=== PATIENT | female | born 1990 | race Caucasian/White ===

== ENCOUNTER 2017-03-27 21:47 | Emergency (ER) | payer OTHER ==
--- NOTE | 2017-03-27 22:01 | ED Physician Documentation ---
PD HPI SKIN - Stated complaint Stated Complaint: TAIL BONE PAIN - History obtained from History obtained from: Patient - History of Present Illness Timing - onset: How many days ago (3) Timing - details: Gradual onset Pain level now: 10 Location: Back Quality / character: Painful, Swelling Similar symptoms before: Diagnosis (pilonidal cyst) - Additional information Additional information: c/o 4 days of progressive pain and swelling in low back , in area of previous episodes of infected pilonidal cyst. She has had surgery for this including removal of sinus tract. Review of Systems GI: denies: Abdominal Pain Skin: reports: Rash Musculoskeletal: reports: Back pain PD PAST MEDICAL HISTORY - Past Medical History Past Medical History: Yes Neuro: Headache/migraine - Past Surgical History Past Surgical History: Yes Derm: Other (pilonidal cyst surgery x 2) - Present Medications Home Medications: Ambulatory Orders Medication Instructions Recorded Confirmed Butalb/Acetaminophen/Caffeine 1 each PO PRN 03/27/17 [Fioricet 50-300-40 mg Capsule] Clindamycin HCl [Clindamycin 300MG 300 mg PO QID #39 capsule 03/27/17 CAP] Cyclobenzaprine [Flexeril] 10 mg ORAL DAILY 03/27/17 03/27/17 Ethinyl Estradiol/Drospirenone 1 tab ORAL DAILY 03/27/17 03/27/17 [Karime 28 Tablet] oxyCODONE/ACET 5/325 [Percocet 5 1 - 2 each PO Q6H PRN #20 tablet 03/27/17 mg/325 mg] - Allergies Allergies/Adverse Reactions: Allergies Allergy/AdvReac Type Severity Reaction Status Date / Time No Known Drug Allergies Allergy Verified 03/27/17 21:53 PD ED PE NORMAL - Vitals Vital signs reviewed: Yes - General General: Alert and oriented X 3, No acute distress, Well developed/nourished - Back Back: No spinal TTP PD ED PE EXPANDED - Back Back visual: 1 - rash (confluent erythema), swelling, tenderness Results - Vitals Vitals: Vital Signs - 24 hr 03/27/17 03/27/17 21:51 23:27 Temperature 37 C Heart Rate 113 H 106 H Respiratory 18 18 Rate Blood Pressure 127/73 109/63 O2 Saturation 96 97 Oxygen O2 Source Room air Procedures - Abscess I&D (location) Back Dorsal Preparation: Chlorhexadine, Lidocaine 1%, With epi Incision: Needle aspiration, Purulent drainage, Culture obtained. No: Incised with scalpel (due to the depth of the abscess (determined by needle probing), I did not incise the abscess. Needle was redirected mulitple times and a total of 35cc pus was removed) Other: Pt tolerated well, Antibiotic prescribed PD MEDICAL DECISION MAKING - ED course Complexity details: reviewed results, re-evaluated patient, considered differential, d/w patient Departure - Departure Disposition: 01 Home, Self Care Clinical Impression: Pilonidal abscess Condition: Good Instructions: ED Cyst Pilonidal Infected IandD Follow-Up: [facility] [Provider Group] Prescriptions: Clindamycin HCl [Clindamycin 300MG CAP] 300 mg PO QID #39 capsule oxyCODONE/ACET 5/325 [Percocet 5 mg/325 mg] 1 - 2 each PO Q6H PRN #20 tablet PRN Reason: Pain
[2017-03-27] MEDS ORDERED: LIDOCAINE 1%-EPI 1:100000 20 ML MDV SUBQ STA (22:10)
[2017-03-27] MEDS ORDERED: HYDROmorphone 1 MG/ML SYRINGE IVP STA (22:10)
[2017-03-27] MEDS ORDERED: LORazepam 2 MG/ML VIAL IVP STA (22:10)
[2017-03-27] MEDS ORDERED: CLINDAMYCIN 600 MG/50 ML 50 ML IV ONE (23:13)
[2017-03-27] MEDS ORDERED: oxyCOD/ACETAMIN 5 MG/325 MG TABLET PO STA (23:14)
[2017-03-27 23:28] VITALS: BP 109/63
[2017-03-27] MEDS ORDERED: oxyCODONE/ACET 5/325 Prepack 4 PO STA (23:34)
== END 2017-03-27 23:59 | disposition home or self-care (01) ==
LOC: ED 21:47
DX: L05.01 Pilonidal cyst with abscess (principal)
CPT/HCPCS: 10080; 36415; 87070; 87205; 96365; 96375; 99283; A9270; J1170; J2060; 81599

== ENCOUNTER 2020-12-16 09:27 | Outpatient (CLI) | payer OTHER ==
--- NOTE | 2020-12-16 15:35 | MRI Report ---
PROCEDURE: Brain W/WO INDICATIONS: BENIGN NEOPLASM OF PITUITARY GLAND CONTRAST: IV CONTRAST: Gadavist ml: 9 TECHNIQUE: Noncontrast axial T1 spin echo, axial T2 fast spin echo, sagittal and axial FLAIR, coronal T2 fast sp in echo, axial gradient echo, axial diffusion and ADC through the brain. After the administration of contrast, axial and coronal T1 spin echo with fat saturation through the brain. COMPARISON: None. FINDINGS: Image quality: Excellent. CSF spaces: Basal cisterns are patent. No extra-axial fluid collections. Ventricles are normal in size and shape. Pituitary gland: T1 shortening is present in the neurohypophysis, larger than expected for the normal posterior pituitary bright spot. In the midline posterior pituitary gland there is an approximately 4 mm focus of hypoenhancement (series 1201 image 4). The anterior pituitary gland demonstrates unifor m enhancement. The infundibulum is midline. Suprasellar structures are unremarkable. Brain: No midline shift. No intracranial bleeds or masses. No abnormal intracranial enhancement. T here is cerebral volume loss for age. There is periventricular white matter chronic small vessel isc hemic change. The brainstem appears normal. Diffusion-weighted images demonstrate no acute ischemic insults. No chronic ischemic insults. Normal intravascular flow voids are present. Skull and face: Calvarial marrow is normal in signal. Orbits appear normal. Sinuses: Sinuses and mastoids appear clear. IMPRESSION: Approximately 4 mm focus of hypoenhancement in the posterior midline pituitary gland is consistent wi th a microadenoma. Intrinsic T1 hyperintensity of this lesion is likely reflective of high proteinace ous content as opposed to hemorrhage. Reviewed by: Will Recio MD on 12/16/2020 3:34 PM PDT Approved by: Will Recio MD on 12/16/2020 3:34 PM PDT Station ID: [id number]
== END 2020-12-16 09:28 | disposition home or self-care (01) ==
LOC: DI 09:27
DX: D35.2 Benign neoplasm of pituitary gland (principal)
CPT/HCPCS: 70553; A9585

== ENCOUNTER 2021-09-24 08:23 | Emergency (ER) | payer OTHER ==
[2021-09-24 08:35] VITALS: BP 114/76
--- NOTE | 2021-09-24 09:11 | ED Physician Documentation ---
PD HPI BACK PAIN - Stated complaint Stated Complaint: BACK PX - Chief complaint Chief Complaint: Back Pain - History obtained from History obtained from: Patient - History of Present Illness Timing - onset: Today Timing - duration: Hours (onset 2 hours ago when bent to lift up bathroom scale (light scale that she dos every day) and felt a spasm and pain in lower back, mostly right. No fall. No neuro symptoms. Hurts for ROM and twisting.) Timing - details: Abrupt onset, Still present Location: Lower, Right Quality: Pain, Spasm, Aching Associated symptoms: No: Fever, Weakness, Numbness, Incontinent of urine Improves with: Rest Worsened by: Movement, Twisting, Palpation Contributing factors: Lifting, Other (she has been helping another person move, so lifting boxes/etc a lot the past few days.). No: Twisting, Trauma Similar symptoms before: Has not had sx before Recently seen: Not recently seen Review of Systems Constitutional: denies: Fever, Chills Nose: denies: Rhinorrhea / runny nose, Congestion Throat: denies: Sore throat Respiratory: denies: Cough GI: denies: Abdominal Pain, Nausea, Vomiting, Diarrhea : denies: Dysuria, Frequency Musculoskeletal: reports: Back pain (just this morning). denies: Neck pain Neurologic: denies: Focal weakness, Numbness, Near syncope PD PAST MEDICAL HISTORY - Past Medical History Cardiovascular: None Respiratory: None Neuro: None Endocrine/Autoimmune: None GI: Ulcers Musculoskeletal: None Derm: Other - Past Surgical History Past Surgical History: Yes /[employer]: Tubal ligation HEENT: Tonsil/Adenoidectomy Derm: Other (pilonidal cyst surgery x 2) - Present Medications Home Medications: Ambulatory Orders Medication Instructions Recorded Confirmed Ethinyl Estradiol/Drospirenone 1 tab ORAL DAILY 03/27/17 09/24/21 [Karime 28 Tablet] Escitalopram Oxalate [Lexapro] 20 mg PO DAILY 09/24/21 09/24/21 Gabapentin [Neurontin] 200 mg PO QPM 09/24/21 09/24/21 HYDROcod/ACETAM 5/325 [Cunningham 5/325] 1 ea PO Q6H PRN #18 tablet 09/24/21 Meloxicam [Mobic] 7.5 mg PO BID 10 Days #20 tablet 09/24/21 Propranolol [Inderal] 10 mg PO BID 09/24/21 09/24/21 tiZANidine [Zanaflex] 4 mg PO Q8H PRN #25 tablet 09/24/21 - Allergies Allergies/Adverse Reactions: Allergies Allergy/AdvReac Type Severity Reaction Status Date / Time No Known Drug Allergies Allergy Verified 03/27/17 21:53 - Social History Does the pt smoke?: Yes Smoking Status: Current every day smoker Does the pt have substance abuse?: No - Immunizations Immunizations are current?: Yes PD ED PE NORMAL - Vitals Vital signs reviewed: Yes - General General: Alert and oriented X 3, Well developed/nourished, Other (appears uncomfortable with guarding ROM of the low back. ) - Cardiac Cardiac: RRR, No murmur - Respiratory Respiratory: Clear bilaterally - Abdomen Abdomen: Soft, Non tender - Back Back: No CVA TTP, Other (tender in muscle lower lumbar more to right of midline. Not tender in vertebrae to percussion. ) - Derm Derm: Normal color, Warm and dry, No rash - Neuro Neuro: Alert and oriented X 3, No motor deficit, No sensory deficit, Other (normal patellar reflexes) Results - Vitals Vitals: Vital Signs - 24 hr 09/24/21 08:33 Temperature 37.2 C Heart Rate 60 Respiratory 18 Rate Blood Pressure 114/76 O2 Saturation 99 Oxygen O2 Source Room air PD MEDICAL DECISION MAKING - ED course Complexity details: re-evaluated patient (improved enough with meds in ER. ), c onsidered differential (acute back pain/spasm with recent increased use (moving boxes). No red flags to suggest need for testing/imaging. ), d/w patient Departure - Departure Disposition: 01 Home, Self Care Clinical Impression: Acute lumbar myofascial strain Qualifiers: Encounter type: initial encounter Qualified Code(s): S39.012A - Strain of muscle, fascia and tendon of lower back, initial encounter Condition: Stable Record reviewed to determine appropriate education?: Yes Instructions: ED Sprain Strain Lumbar Follow-Up: DAMON RUANO MD [Primary Care Provider] - Prescriptions: Meloxicam [Mobic] 7.5 mg PO BID 10 Days #20 tablet HYDROcod/ACETAM 5/325 [Cunningham 5/325] 1 ea PO Q6H PRN #18 tablet PRN Reason: Pain tiZANidine [Zanaflex] 4 mg PO Q8H PRN #25 tablet PRN Reason: Spasms Comments: Heat gentle stretching and local treatments such as massage or chiropractic are good for the back. Activity as tolerated initially with some light activity and movement and stretching. No bending lifting or repetitive heavy activity for several days to week. Back pain episodes are fairly common and typically treated with anti- inflammatories and muscle relaxants heat stretching massage and pain medicine if needed. Commonly these improve over several days to week or 2. Follow-up with your primary care if not improving well over the next week or so for the consideration of other treatment options such as physical therapy etc. Follow-up sooner or return to the ER if worsening pain or any other associated unusual symptoms such as fever, progressive weakness or numbness, inability to urinate or control your bladder, other concerns. I transmitted your prescriptions to [facility] pharmacy in [place]. I am prescribing a short course of narcotic pain medication for you. These are potentially dangerous and addictive medications that should be used carefully. These medications may constipate you. Take an [id number] stool softener such as docusate twice daily with plenty of water while taking these medications. If you go 24 hours without a bowel movement, take [id number] MiraLAX, per package instructions. Do not drink or drive while taking these medications. If you received narcotic or sedating medications while in the emergency department do not drive for 24 hours. Store this medication in a safe, secure place and out of reach of children. It is a violation of federal law to give or sell this medication to another person or to use in a manner other than prescribed. The ED will not refill narcotic prescriptions, including prescriptions lost or stolen. You can dispose of unwanted medications at the [facility]'s office or at several pharmacies such as [facility]. Forms: Activity restrictions Discharge Date/Time: 09/24/21 10:20
[2021-09-24] MEDS ORDERED: HYDROmorphone 1 MG/ML CARPUJECT IM STA (09:20)
[2021-09-24] MEDS ORDERED: KETOROLAC 30 MG/ML VIAL IM STA (09:20)
[2021-09-24] MEDS ORDERED: methocarbamoL 500 MG TABLET PO STA (09:20)
[2021-09-24] MEDS ORDERED: ACETAMINOPHEN 325 MG TABLET PO STA (09:20)
== END 2021-09-24 10:20 | disposition home or self-care (01) ==
LOC: ED 08:23
DX: S39.012A Strain of muscle, fascia and tendon of lower back, initial encounter (principal); X50.0XXA Overexertion from strenuous movement or load, initial encounter; Y93.89 Activity, other specified; Y92.002 Bathroom of unspecified non-institutional (private) residence as the place of occurrence of the external cause; F17.200 Nicotine dependence, unspecified, uncomplicated
CPT/HCPCS: 96372; 99282; 99283; A9270; J1170

== ENCOUNTER 2021-12-01 08:00 | Outpatient (CLI) | payer OTHER ==
--- NOTE | 2021-12-01 17:11 | XRAY Report ---
PROCEDURE: Chest 2 View X-Ray INDICATIONS: COUGH TECHNIQUE: 2 view(s) of the chest. COMPARISON: None. FINDINGS: Surgical changes and devices: None. Lungs and pleura: No pleural effusions or pneumothorax. Lungs are clear. Mediastinum: Mediastinal contours are normal. Heart size is normal. Bones and chest wall: No suspicious bony abnormalities. Soft tissues appear unremarkable. IMPRESSION: No acute cardiopulmonary abnormality. Reviewed by: Blayne Ch MD on 12/01/2021 5:10 PM PDT Approved by: Blayne Ch MD on 12/01/2021 5:10 PM PDT Station ID: [id number]
== END 2021-12-01 23:59 | disposition home or self-care (01) ==
LOC: DI.N 08:00
PROVIDERS: ATTEND Physician Assistant Medical
DX: R05.2 Subacute cough (principal)

== ENCOUNTER 2023-05-10 09:09 | Outpatient (CLI) | payer OTHER ==
--- NOTE | 2023-05-10 11:26 | MRI Report ---
PROCEDURE: Brain WO INDICATIONS: MIGRAINE TECHNIQUE: Noncontrast axial T1 spin echo, axial T2 fast spin echo, sagittal and axial FLAIR, coronal T2 fast sp in echo, axial gradient echo, axial diffusion and ADC through the brain. COMPARISON: Pituitary protocol MRI with and without contrast dated 12/16/2020. FINDINGS: Image quality: Excellent. CSF Spaces: Basal cisterns are patent. No extra-axial fluid collections. Ventricles are normal in size and shape. Brain: No intracranial masses or hemorrhage. Arias/white matter interface is normal. Brainstem appe ars normal. Diffusion-weighted images demonstrate no acute ischemic insult. No chronic ischemic ins ults. Normal intravascular flow voids are present. There is currently no findings suspicious for a pituitary microadenoma. Skull and face: Calvarium has normal marrow signal. Orbits appear normal. Sinuses: Sinuses and mastoids are clear. IMPRESSION: 1. Normal brain MRI. No acute intracranial process. 2. No evidence of pituitary macroadenoma. However, if suspect pituitary macroadenoma, consider pituit jorge protocol MRI. Reviewed by: Ramon Rapp MD on 05/10/2023 11:24 AM PST Approved by: Ramon Rapp MD on 05/10/2023 11:24 AM PST Station ID: [id number]
== END 2023-05-10 09:10 | disposition home or self-care (01) ==
LOC: DI 09:09
DX: G43.009 Migraine without aura, not intractable, without status migrainosus (principal); R42 Dizziness and giddiness